=== PATIENT | female | born 1985 | race Caucasian/White ===

== ENCOUNTER 2018-07-06 14:42 | Emergency (ER) | payer OTHER ==
--- NOTE | 2018-07-06 16:13 | RAD REPORT ---
EXAM DESCRIPTION: RAD - Foot Right 3 View - 07/06/2018 3:53 pm CLINICAL HISTORY: Blunt force trauma right foot COMPARISON: None. FINDINGS: An oblique fracture is present through the shaft of the fifth proximal phalanx. There is l ateral angulation deformity of approximately 20 degrees. Middle and distal phalanges remain intact. No other acute bone or joint finding. No air or foreign body in the soft tissues. IMPRESSION: Fifth toe proximal phalanx fracture with angulation.
--- NOTE | 2018-07-06 16:14 | ER ---
Nurse's Notes [facility] Name: Shweta Fong Age: 32 yrs Sex: Female : 1985 Arrival Date: 07/06/2018 Time: 14:45 Bed 24 Private MD: GEOVANY BEAULIEU Diagnosis: Displaced fracture of proximal phalanx of right lesser toe(s)-5th Presentation: 07/06 15:08 Presenting complaint: Patient states: She accidentally kicked some school supplies with aj1 her right pinky toe. Right pinky toe appears to be dislocated. Transition of care: patient was not received from another setting of care. Onset of symptoms was July 06, 2018 at 14:00. Risk Assessment: Do you want to hurt yourself or someone else? Patient reports no desire to harm self or others. Initial Sepsis Screen: Does the patient meet any 2 criteria? No. Patient's initial sepsis screen is negative. Does the patient have a suspected source of infection? No. Patient's initial sepsis screen is negative. Care prior to arrival: None. 15:08 Method Of Arrival: Ambulatory aj1 15:08 Acuity: ANGELIQUE 4 aj1 Triage Assessment: 15:11 General: Appears in no apparent distress. uncomfortable, Behavior is calm, cooperative, aj1 appropriate for age. Pain: Complains of pain in right fifth toe Pain currently is 7 out of 10 on a pain scale. Neuro: Level of Consciousness is awake, alert, obeys commands. Cardiovascular: Patient's skin is warm and dry. Respiratory: Airway is patent Respiratory effort is even, unlabored, Respiratory pattern is regular, symmetrical. 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 - Social history:: Smoking status: Patient/guardian denies using tobacco. - Ebola Screening: : Patient denies travel to an Ebola-affected area in the 21 days before illness onset. Screenin:40 Abuse screen: Denies threats or abuse. Nutritional screening: No deficits noted. tl3 Tuberculosis screening: No symptoms or risk factors identified. Fall Risk None identified. Assessment: 15:40 General: Appears in no apparent distress. comfortable, slender, well groomed, well tl3 developed, well nourished, Behavior is calm, cooperative, appropriate for age. Pain: Complains of pain in right fifth toe Pain currently is 7 out of 10 on a pain scale. at worst was 10 out of 10 on a pain scale. Neuro: Level of Consciousness is awake, alert, obeys commands, Oriented to person, place, time, situation, Appropriate for age. Cardiovascular: Patient's skin is warm and dry. Respiratory: Airway is patent is compromised Respiratory effort is even, unlabored, Respiratory pattern is regular, symmetrical. GI: No deficits noted. No signs and/or symptoms were reported involving the gastrointestinal system. : No deficits noted. No signs and/or symptoms were reported regarding the genitourinary system. EENT: No deficits noted. No signs and/or symptoms were reported regarding the EENT system. Derm: No deficits noted. No signs and/or symptoms reported regarding the dermatologic system. Musculoskeletal: right small toe appears to be dislocated. 16:26 Reassessment: Patient appears in no apparent distress at this time. No changes from tl3 previously documented assessment. Patient and/or family updated on plan of care and expected duration. Pain level reassessed. Patient is alert, oriented x 3, equal unlabored respirations, skin warm/dry/pink. Vital Signs: 15:11 BP 149 / 100; Pulse 88; Resp 18; Temp 98.4(TE); Pulse Ox 99% on R/A; Weight 81.65 kg aj1 (R); Height 5 ft. 4 in. (162.56 cm); Pain 7/10; 16:26 BP 126 / 84; Pulse 69; Resp 18; Pulse Ox 99% ; tl3 15:11 Body Mass Index 30.90 (81.65 kg, 162.56 cm) aj1 ED Course: 14:45 Patient arrived in ED. sb2 14:46 GEOVANY BEAULIEU is Private Physician. sb2 15:10 Triage completed. aj1 15:11 Arm band placed on Patient placed in an exam room. aj1 15:12 Ameena Mathews FNP-C is [facility]. snw 15:12 Nolberto Ochoa MD is Attending Physician. snw 15:37 Jud uCba, RN is Primary Nurse. tl3 15:40 Patient has correct armband on for positive identification. Bed in low position. Call tl3 light in reach. Side rails up X 1. 15:40 No provider procedures requiring assistance completed. Patient did not have IV access tl3 during this emergency room visit. 15:48 X-ray completed. Portable x-ray completed in exam room. Patient tolerated procedure ag1 well. 15:49 Foot Right 3 View XRAY In Process Unspecified. EDMS 16:11 Yosef Fragoso MD is Referral Physician. snw 16:26 Saulo tape right fifth toe Ortho shoe applied to right foot. tl3 Administered Medications: 16:26 Drug: [place] 5 mg-325 mg 1 tabs Route: PO; tl3 16:26 Follow up: Response: Medication administered at discharge. tl3 Outcome: 16:13 Discharge ordered by . snw 16:26 Discharged to home ambulatory. tl3 16:26 Condition: good 16:26 Discharge instructions given to patient, Instructed on discharge instructions, follow up and referral plans. medication usage, Demonstrated understanding of instructions, follow-up care, medications, splint care, Prescriptions given X 1. 16:28 Patient left the ED. tl3 Signatures: Dispatcher [employer] EDVT Reba Rucker, RN RN aj1 Ameena Mathews, AUTOMATIC WHEEL LINE OPERATOR-C AUTOMATIC WHEEL LINE OPERATOR-Csnw Yuly Rocha ag1 Karie Tapia sb2 Jud Cuba, RN RN tl3
--- NOTE | 2018-07-06 16:14 | EDPHYS ---
Physician Documentation [facility] Name: Shweta Fong Age: 32 yrs Sex: Female : 1985 Arrival Date: 07/06/2018 Time: 14:45 Bed 24 Private MD: GEOVANY BEAULIEU ED Physician Nolberto Ochoa HPI: 07/06 16:15 This 32 yrs old Female presents to ER via Ambulatory with complaints of Toe snw Injury. 16:15 The patient presents with decreased range of motion, pain, swelling. The complaints snw affect the right foot. Context: The problem was sustained at home, resulted from stubbing toe on furniture. Mechanism of Injury: Adduction the patient can partially bear weight, the patient is able to ambulate. Onset: The symptoms/episode began/occurred suddenly, just prior to arrival. Associated signs and symptoms: Pertinent positives: swelling. Severity of symptoms: At their worst the symptoms were moderate. The patient has not experienced similar symptoms in the past. The patient has not recently seen a physician. kicked some school supplies and noted her right fifth toe was pointing in the wrong direction. 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 - Social history:: Smoking status: Patient/guardian denies using tobacco. - Ebola Screening: : Patient denies travel to an Ebola-affected area in the 21 days before illness onset. ROS: 16:03 Constitutional: Negative for fever, chills, and weight loss, Eyes: Negative for injury, snw pain, redness, and discharge, ENT: Negative for injury, pain, and discharge, Neck: Negative for injury, pain, and swelling, Cardiovascular: Negative for chest pain, palpitations, and edema, Respiratory: Negative for shortness of breath, cough, wheezing, and pleuritic chest pain, Abdomen/GI: Negative for abdominal pain, nausea, vomiting, diarrhea, and constipation, Back: Negative for injury and pain, : Negative for injury, bleeding, discharge, and swelling, Skin: Negative for injury, rash, and discoloration, Neuro: Negative for headache, weakness, numbness, tingling, and seizure. 16:03 MS/extremity: Positive for injury or acute deformity, decreased range of motion, pain, swelling, tenderness, of the right fifth toe. Exam: 15:52 Constitutional: This is a well developed, well nourished patient who is awake, alert, snw and in no acute distress. Head/Face: Normocephalic, atraumatic. Eyes: Pupils equal round and reactive to light, extra-ocular motions intact. Lids and lashes normal. Conjunctiva and sclera are non-icteric and not injected. Cornea within normal limits. Periorbital areas with no swelling, redness, or edema. ENT: Nares patent. No nasal discharge, no septal abnormalities noted. Tympanic membranes are normal and external auditory canals are clear. Oropharynx with no redness, swelling, or masses, exudates, or evidence of obstruction, uvula midline. Mucous membranes moist. Neck: Trachea midline, no thyromegaly or masses palpated, and no cervical lymphadenopathy. Supple, full range of motion without nuchal rigidity, or vertebral point tenderness. No Meningismus. Chest/axilla: Normal chest wall appearance and motion. Nontender with no deformity. No lesions are appreciated. Cardiovascular: Regular rate and rhythm with a normal S1 and S2. No gallops, murmurs, or rubs. Normal PMI, no JVD. No pulse deficits. Respiratory: Lungs have equal breath sounds bilaterally, clear to auscultation and percussion. No rales, rhonchi or wheezes noted. No increased work of breathing, no retractions or nasal flaring. Abdomen/GI: Soft, non-tender, with normal bowel sounds. No distension or tympany. No guarding or rebound. No evidence of tenderness throughout. Back: No spinal tenderness. No costovertebral tenderness. Full range of motion. Skin: Warm, dry with normal turgor. Normal color with no rashes, no lesions, and no evidence of cellulitis. Neuro: Awake and alert, GCS 15, oriented to person, place, time, and situation. Cranial nerves II-XII grossly intact. Motor strength 5/5 in all extremities. Sensory grossly intact. Cerebellar exam normal. Normal gait. Psych: Awake, alert, with orientation to person, place and time. Behavior, mood, and affect are within normal limits. 15:52 Musculoskeletal/extremity: Extremities: grossly normal except: noted in the right fifth toe: pain, decreased ROM, deformity. Vital Signs: 15:11 BP 149 / 100; Pulse 88; Resp 18; Temp 98.4(TE); Pulse Ox 99% on R/A; Weight 81.65 kg aj1 (R); Height 5 ft. 4 in. (162.56 cm); Pain 7/10; 16:26 BP 126 / 84; Pulse 69; Resp 18; Pulse Ox 99% ; tl3 15:11 Body Mass Index 30.90 (81.65 kg, 162.56 cm) aj1 MDM: 15:13 Patient medically screened. snw 15:13 Patient medically screened. liana 16:15 Data reviewed: vital signs, nurses notes. Data interpreted: Pulse oximetry: on room air snw is 99 %. Interpretation: normal. Counseling: I had a detailed discussion with the patient and/or guardian regarding: the historical points, exam findings, and any diagnostic results supporting the discharge/admit diagnosis, the presence of at least one elevated blood pressure reading (>120/80) during this emergency department visit, radiology results, the need for outpatient follow up, to return to the emergency department if symptoms worsen or persist or if there are any questions or concerns that arise at home. Special discussion: I have referred the patient to see his PCP for further evaluation of high blood pressure. Based on the history and exam findings, there is no indication for further emergent testing or inpatient evaluation. I discussed with the patient/guardian the need to see the orthopedic surgeon for further evaluation of the symptoms. I discussed with the patient/guardian the need to see the primary care provider for further evaluation of the symptoms. 07/06 15:13 Order name: Foot Right 3 View XRAY; Complete Time: 16:21 snw 07/06 16:11 Order name: Misc. Order: please pad between 4th and 5th toes and then abdoulaye tape those snw toes; Complete Time: 16:12 07/06 16:11 Order name: Post-op shoe; Complete Time: 16:12 snw Administered Medications: 16:26 Drug: [place] 5 mg-325 mg 1 tabs Route: PO; tl3 16:26 Follow up: Response: Medication administered at discharge. tl3 Disposition: 07/07 07:02 Co-signature as Attending Physician, Nolberto Ochoa MD I agree with the assessment and liana plan of care. Disposition: 07/06/18 16:13 Discharged to Home. Impression: Displaced fracture of proximal phalanx of right lesser toe(s) - 5th. - Condition is Stable. - Discharge Instructions: Elastic Bandage and RICE, Cast or Splint Care, Adult, Toe Fracture, Cryotherapy. - Prescriptions for Diclofenac Sodium 75 mg Oral Tablet Sustained Release - take 1 tablet by ORAL route 2 times per day; 30 tablet. - Work release form, Medication Reconciliation Form, Thank You Letter, Antibiotic Education, Prescription Opioid Use form. - Follow up: Private Physician; When: 1 - 2 days; Reason: Recheck today's complaints, Continuance of care, Re-evaluation by your physician. Follow up: Yosef Fragoso MD; When: 1 week; Reason: Recheck today's complaints, Continuance of care. Signatures: Dispatcher [employer] EDReba Burnette RN RN aj1 Nolberto Ochoa MD MD cha Therrien, Shelly, SENIOR NETWORK ARCHITECT-C SENIOR NETWORK ARCHITECT-Csnw Jud Cuba RN RN tl3 Corrections: (The following items were deleted from the chart) 07/06 16:28 16:13 07/06/2018 16:13 Discharged to Home. Impression: Displaced fracture of proximal tl3 phalanx of right lesser toe(s) - 5th. Condition is Stable. Forms are Medication Reconciliation Form, Thank You Letter, Antibiotic Education, Prescription Opioid Use. Follow up: Private Physician; When: 1 - 2 days; Reason: Recheck today's complaints, Continuance of care, Re-evaluation by your physician. Follow up: Dr. Yosef Fragoso; When: 1 week; Reason: Recheck today's complaints, Continuance of care. snw
[2018-07-06] MEDS ORDERED: HYDROCODONE/APAP 5/325 MG TAB ONE (16:20)
[2018-07-06 16:34] VITALS: BP 126/84; TEMP 98.4; O2SAT 99
== END 2018-07-06 16:28 | disposition home or self-care (01) ==
LOC: ER 14:42
DX: S92.511A Displaced fracture of proximal phalanx of right lesser toe(s), initial encounter for closed fracture (principal); W22.8XXA Striking against or struck by other objects, initial encounter; Y93.89 Activity, other specified; Y92.009 Unspecified place in unspecified non-institutional (private) residence as the place of occurrence of the external cause; Z88.0 Allergy status to penicillin
CPT/HCPCS: 99284

== ENCOUNTER 2020-04-24 19:51 | Emergency (ER) | payer OTHER ==
--- OUTSIDE RECORDS SUMMARY | 2020-04-24 19:53 | XMS REPORT | Summary of Care ---
:1985 Author Organization [facility] Address [address] [place] [id number] Care Team Providers Name Role Phone Mago Mantilla MD Primary Care Provider Reason for Visit Reason Comments No Show (DNKA) Encounter Details Date Type Department Care Team Description 04/12/2020 Telemedicine Visit [facility] Milton Mantilla NO S HOW (Primary Pediatric and Adult MD Mago Dx) Primary Care- [address] [place], [place] [address] [address] , [address] [place], [place] [phone] [address] (Fax) [phone] Allergies Active Allergy Reactions Severity Noted Date Comments Penicillin Unknown - See comments 06/11/2016 documented as of this encounter (statuses as of 04/12/2020) Medications Medication Sig Dispensed Refills Start Date End Date Status acetaminophen (TYLENOL Take 650 mg 0 Active ARTHRITIS PAIN) 650 mg CR by mouth tablet every 8 (eight) hours as needed for Pain. ergocalciferol, vitamin Take 50,000 0 Active d2, (VITAMIN D2) 50,000 Units by unit capsule mouth weekly. albuterol sulfate (PROAIR Inhale 2 1 Each 1 08/05/2017 Active RESPICLICK) 90 Puffs every 6 mcg/actuation (six) hours AePBIndications: Left as needed sided chest pain, History (wheezing, of asthma SOB, or chest tightness). hydroxychloroquine 200 mg Take 1 tablet 90 tablet 1 02/04/2018 Active tablet by mouth daily. clindamycin 300 mg Take 1 40 capsule 0 04/09/2020 0 Active capsuleIndications: Acute capsule by non-recurrent maxillary mouth 4 sinusitis (four) times daily for 10 days. documented as of this encounter (statuses as of 04/12/2020) Active Problems Problem Noted Date Microscopic hematuria 04/09/2017 SS-B antibody positive 04/02/2017 Hepatic steatosis 04/02/2017 Elevated LFTs 04/02/2017 Blood in stool 04/02/2017 Encounter for new medication prescription 04/02/2017 Vitamin D deficiency 04/02/2017 Pain in joint, multiple sites 12/18/2016 Dry mouth 12/18/2016 Long-term use of high-risk medication 12/18/2016 Chronic midline low back pain without sciatica 017 Encounter for long-term (current) use of NSAIDs 2016 Fatty liver 07/30/2016 Borderline abnormal thyroid function test 06/17/2016 Abnormal liver function test 06/17/2016 Positive CARMELO (antinuclear antibody) 06/17/2016 Mixed dyslipidemia 06/17/2016 Prediabetes 06/17/2016 Bilateral knee pain 06/17/2016 Chest pain, atypical 06/11/2016 Elevated blood pressure (not hypertension) 06/11/2016 Low serum HDL documented as of this encounter (statuses as of 04/12/2020) Immunizations Name Administration Dates Next Due Twinrix (hep a/hep b) 04/07/2017 documented as of this encounter Social History Tobacco Use Types Packs/Day Years Used Date Former Smoker 1 10 Smokeless Tobacco: Never Used Comments: quit 5 yrs ago Alcohol Use Drinks/Week oz/Week Comments Yes rarely Sex Assigned at Date Recorded Not on file Job Start Date Occupation Industry Not on file Not on file Not on file Travel History Travel Start Travel End No recent travel history available. documented as of this encounter Last Filed Vital Signs Not on filedocumented in this encounter Progress Notes [place] Mantilla MD - 04/12/2020 10:15 AM CDTUnable to reach the patient despite multiple attempts. LVM for her to call back if she needs to reschedule. documented in this encounter Plan of Treatment Health Maintenance Due Date Last Done Comments VARICELLA VACCINES (1 of 2 - 1986 2-dose childhood series) DTaP,Tdap,and Td Vaccines (1 - 1996 Tdap) PAP SMEAR 2006 INFLUENZA VACCINE (Season Ended) 2020 PNEUMOCOCCAL 0-64 YEARS COMBINED Aged Out No longer eligible based on SERIES patient's age to complete this topic documented as of this encounter Results Not on filedocumented in this encounter Visit Diagnoses Diagnosis NO SHOW - Primary documented in this encounter Insurance Payer Benefit Plan / Subscriber ID Effective Dates Phone Addre ss Type Group [facility] [id number] [facility] P[facility] t S documented as of this encounter
--- OUTSIDE RECORDS SUMMARY | 2020-04-24 19:53 | XMS REPORT | Continuity of Care Document ---
:1985 Author Organization [facility] t Address [address] [place] [address] Care Team Providers Name Role Phone Annalee MORALES, Mago Attending Clinician Problems This patient has no known problems. Allergies, Adverse Reactions, Alerts This patient has no known allergies or adverse reactions. Medications This patient has no known medications. Procedures This patient has no known procedures. Encounters Start End Encounter Admission Attending Care Care Encounter Source Date/Time Date/Time Type Type Clinicians Facility Department ID 2020-04-12 2020-04-12 [facility] SUNNI Mantilla [id number] 07:33:31 07:48:31 ne Visit [facility] [id number] [phone] Results This patient has no known results.
--- NOTE | 2020-04-24 21:40 | ER ---
Nurse's Notes [facility] Name: Shweta Fong Age: 34 yrs Sex: Female : 1985 Arrival Date: 04/24/2020 Time: 19:54 Bed 16 Private MD: Diagnosis: Dental caries;Dental root caries Presentation: 04/24 20:04 Chief complaint: Patient states: Left facial swelling and pain for 2 weeks. Took full ll1 dose clindamycin for 10 days, site is still swollen. Feels knot in her left maxillary sinus area. + ANDERSON;s. No known fever. Coronavirus screen: Proceed with normal triage. Patient denies a cough. Patient denies shortness of breath or difficulty breathing. Patient denies measured and/or subjective temperature greater than 100.4F prior to today's visit. Patient denies travel on a cruise ship or to a country the [facility] currently lists as an affected area. Patient denies contact with known and/or suspected case of COVID-19. Ebola Screen: Patient denies travel to an Ebola-affected area in the 21 days before illness onset. Initial Sepsis Screen: Does the patient meet any 2 criteria? No. Patient's initial sepsis screen is negative. Risk Assessment: Do you want to hurt yourself or someone else? Patient reports no desire to harm self or others. Onset of symptoms was April 08, 2020. 20:04 Method Of Arrival: Ambulatory ll1 20:04 Acuity: ANGELIQUE 4 ll1 20:30 Initial Sepsis Screen: Does the patient have a suspected source of infection? Yes: wh Other: dental carries. 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 - Social history:: Smoking status: Patient denies any tobacco usage or history of. Patient/guardian denies using alcohol, street drugs, tobacco products. - Family history:: not pertinent. Screenin:30 Abuse screen: Denies threats or abuse. Denies injuries from another. Nutritional wh screening: No deficits noted. Tuberculosis screening: No symptoms or risk factors identified. Fall Risk None identified. Assessment: 20:30 General: Appears in no apparent distress. Behavior is calm, cooperative, appropriate wh for age. Pain: Complains of pain in left cheek Pain does not radiate. Neuro: Level of Consciousness is awake, alert, obeys commands, Oriented to person, place, time, situation, Appropriate for age. Cardiovascular: Capillary refill < 3 seconds. Respiratory: Airway is patent Respiratory effort is even, unlabored, Respiratory pattern is regular, symmetrical. GI: Abdomen is flat, non-distended. : No signs and/or symptoms were reported regarding the genitourinary system. EENT: dental carries. Derm: Skin is intact, is healthy with good turgor, Skin is pink, warm \T\ dry. normal. Musculoskeletal: Circulation, motion, and sensation intact. Vital Signs: 20:04 BP 132 / 100; Pulse 81; Resp 18; Temp 98.5; Pulse Ox 100% ; Pain 4/10; ll1 21:30 BP 125 / 94; Pulse 75; Resp 18; Pulse Ox 100% on R/A; ED Course: 19:54 Patient arrived in ED. cl3 20:08 Triage completed. ll1 20:08 Arm band placed on Patient placed in an exam room, on a stretcher. ll1 20:30 Patient has correct armband on for positive identification. Bed in low position. Call light in reach. Side rails up X 1. Pulse ox on. NIBP on. 20:41 Nolberto Ochoa MD is Attending Physician. [facility] 21:37 Kelli Marie is Primary Nurse. 21:39 Jorge Nguyen DDS is Referral Physician. [facility] 21:52 No provider procedures requiring assistance completed. Patient did not have IV access during this emergency room visit. Administered Medications: 21:46 Drug: Clindamycin 300 mg Route: PO; 21:55 Follow up: Response: No adverse reaction Outcome: 21:39 Discharge ordered by . [facility] 21:54 Discharged to home ambulatory. 21:54 Condition: stable 21:54 Discharge instructions given to patient, Instructed on discharge instructions, follow up and referral plans. medication usage, POC Demonstrated understanding of instructions, follow-up care, medications, POC Prescriptions given X 1. 21:55 Patient left the ED. Signatures: Nolberto Ochoa MD MD cha Habalo, Winsy Everette Kaur cl3 Pastora Kaur RN RN ll1
--- NOTE | 2020-04-24 21:40 | EDPHYS ---
Physician Documentation [facility] Name: Shweta Fong Age: 34 yrs Sex: Female : 1985 Arrival Date: 04/24/2020 Time: 19:54 Bed 16 Private MD: ED Physician Nolberto Ochoa HPI: 04/24 21:36 This 34 yrs old Female presents to ER via Ambulatory with complaints of Eye liana Problem. 21:36 The patient is experiencing pain. 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 - Social history:: Smoking status: Patient denies any tobacco usage or history of. Patient/guardian denies using alcohol, street drugs, tobacco products. - Family history:: not pertinent. ROS: 21:37 Constitutional: Negative for fever, chills, and weight loss, Eyes: Negative for injury, liana pain, redness, and discharge, Neck: Negative for injury, pain, and swelling, Cardiovascular: Negative for chest pain, palpitations, and edema, Respiratory: Negative for shortness of breath, cough, wheezing, and pleuritic chest pain, Abdomen/GI: Negative for abdominal pain, nausea, vomiting, diarrhea, and constipation, Back: Negative for injury and pain, MS/Extremity: Negative for injury and deformity, Skin: Negative for injury, rash, and discoloration, Neuro: Negative for headache, weakness, numbness, tingling, and seizure, Psych: Negative for depression, anxiety, suicide ideation, homicidal ideation, and hallucinations, Allergy/Immunology: Negative for hives, rash, and allergies, Endocrine: Negative for neck swelling, polydipsia, polyuria, polyphagia, and marked weight changes, Hematologic/Lymphatic: Negative for swollen nodes, abnormal bleeding, and unusual bruising. 21:37 ENT: Positive for Gum pain sinus pain, Teeth pain Exam: 21:37 Constitutional: This is a well developed, well nourished patient who is awake, alert, liana and in no acute distress. Eyes: Pupils equal round and reactive to light, extra-ocular motions intact. Lids and lashes normal. Conjunctiva and sclera are non-icteric and not injected. Cornea within normal limits. Periorbital areas with no swelling, redness, or edema. ENT: Nares patent. No nasal discharge, no septal abnormalities noted. Tympanic membranes are normal and external auditory canals are clear. Oropharynx with no redness, swelling, or masses, exudates, or evidence of obstruction, uvula midline. Mucous membranes moist. Neck: Trachea midline, no thyromegaly or masses palpated, and no cervical lymphadenopathy. Supple, full range of motion without nuchal rigidity, or vertebral point tenderness. No Meningismus. Chest/axilla: Normal chest wall appearance and motion. Nontender with no deformity. No lesions are appreciated. Cardiovascular: Regular rate and rhythm with a normal S1 and S2. No gallops, murmurs, or rubs. Normal PMI, no JVD. No pulse deficits. Respiratory: Lungs have equal breath sounds bilaterally, clear to auscultation and percussion. No rales, rhonchi or wheezes noted. No increased work of breathing, no retractions or nasal flaring. Abdomen/GI: Soft, non-tender, with normal bowel sounds. No distension or tympany. No guarding or rebound. No evidence of tenderness throughout. Back: No spinal tenderness. No costovertebral tenderness. Full range of motion. Skin: Warm, dry with normal turgor. Normal color with no rashes, no lesions, and no evidence of cellulitis. MS/ Extremity: Pulses equal, no cyanosis. Neurovascular intact. Full, normal range of motion. Neuro: Awake and alert, GCS 15, oriented to person, place, time, and situation. Cranial nerves II-XII grossly intact. Motor strength 5/5 in all extremities. Sensory grossly intact. Cerebellar exam normal. Normal gait. Psych: Awake, alert, with orientation to person, place and time. Behavior, mood, and affect are within normal limits. 21:37 Head/face: Noted is swelling, that is moderate, of the left cheek. 21:37 ENT: Dental exam: dental caries, gum swelling, missing teeth, pain, that is moderate, specifically in the upper left cuspid (#11). Vital Signs: 20:04 BP 132 / 100; Pulse 81; Resp 18; Temp 98.5; Pulse Ox 100% ; Pain 4/10; ll1 21:30 BP 125 / 94; Pulse 75; Resp 18; Pulse Ox 100% on R/A; wh MDM: 20:41 Patient medically screened. [facility] 21:39 Data reviewed: vital signs, nurses notes. [facility] 21:40 ED course: no trismus, long h of dental caries, will follow up , return if worse. [facility] Administered Medications: 21:46 Drug: Clindamycin 300 mg Route: PO; 21:55 Follow up: Response: No adverse reaction Disposition: 04/24/20 21:39 Discharged to Home. Impression: Dental caries, Dental root caries. - Condition is Stable. - Discharge Instructions: Dental Caries, Adult, Dental Pain, Dental Pain, Uitr-[id number], Diet and Dental Disease, Dental Caries, [id number]. - Prescriptions for Clindamycin HCl 150 mg Oral Capsule - take 2 capsule by ORAL route every 6 hours for 7 days; 56 capsule. - Medication Reconciliation Form, Thank You Letter, Antibiotic Education, Prescription Opioid Use form. - Follow up: Private Physician; When: 2 - 3 days; Reason: Recheck today's complaints, Continuance of care, Re-evaluation by your physician. Follow up: Jorge Nguyen DDS; When: 2 - 3 days; Reason: Recheck today's complaints, Re-evaluation by your physician. - Problem is new. - Symptoms have improved. Signatures: Nolberto Ochoa MD MD cha Habalo, Winsy Pastora Kaur RN RN ll1 Corrections: (The following items were deleted from the chart) 21:55 21:39 04/24/2020 21:39 Discharged to Home. Impression: Dental caries; Dental root wh caries. Condition is Stable. Forms are Medication Reconciliation Form, Thank You Letter, Antibiotic Education, Prescription Opioid Use. Follow up: Private Physician; When: 2 - 3 days; Reason: Recheck today's complaints, Continuance of care, Re-evaluation by your physician. Follow up: Jorge Nguyen; When: 2 - 3 days; Reason: Recheck today's complaints, Re-evaluation by your physician. Problem is new. Symptoms have improved. [facility]
[2020-04-24 22:10] VITALS: TEMP 98.5; O2SAT 100
[2020-04-24 22:19] VITALS: BP 125/94
== END 2020-04-24 21:55 | disposition home or self-care (01) ==
LOC: ER 19:51
DX: K02.9 Dental caries, unspecified (principal); K02.7 Dental root caries; Z88.0 Allergy status to penicillin
CPT/HCPCS: 99283

== ENCOUNTER 2020-07-04 14:16 | Emergency (ER) | payer OTHER ==
[2020-07-04] MEDS ORDERED: KETOROLAC 30 MG/ML INJ ONE (15:05)
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
--- NOTE | 2020-07-04 16:03 | RAD REPORT ---
EXAM DESCRIPTION: RAD - Forearm Right - 07/04/2020 3:26 pm CLINICAL HISTORY: Right arm pain FINDINGS: No fracture is seen. Negative ulnar variance
--- NOTE | 2020-07-04 16:04 | RAD REPORT ---
EXAM DESCRIPTION: RAD - Shoulder Right 2 View - 07/04/2020 3:26 pm CLINICAL HISTORY: Right shoulder pain FINDINGS: No fracture or dislocation is seen.
[2020-07-04 16:50] VITALS: BP 135/87; TEMP 99; O2SAT 98
== END 2020-07-04 16:44 | disposition home or self-care (01) ==
LOC: ER 14:16
DX: M25.511 Pain in right shoulder (principal); V49.49XA Driver injured in collision with other motor vehicles in traffic accident, initial encounter; Z88.0 Allergy status to penicillin
CPT/HCPCS: 96372; 99284